=== PATIENT | female | born 1975 | race Caucasian/White ===

== ENCOUNTER 2022-03-20 10:47 | Outpatient (CLI) | payer BC ==
[2022-03-20 12:28] LABS: Hemoglobin 13.4 g/dL (12.0-15.5); Mean Corpuscular HGB CONC 34.2 g/dL (32.0-36.0); Mean Corpuscular Hemoglobin 32.1 pg (27.0-33.0); Mean Platelet Volume 9.8 fl (7.4-10.4); Platelet Count 339 10x3/uL (150-450); RBC Distribution Width 12.6 % (11.5-14.5); Red Blood Cell (RBC) Count 4.17 10x6/uL (3.90-5.03); White Blood Cell (WBC) Count 8.1 10x3/uL (3.5-10.5)
[2022-03-20 12:52] LABS: Anion Gap 15 mmol/L (10-20); BUN (Urea Nitrogen) 17 mg/dL (7.0-18.7); Calc. Creatinine Clearance 0 mL/min (70-130); Calcium 9.7 mg/dL (7.8-10.44); Carbon Dioxide 27 mmol/L (22-29); Chloride 102 mmol/L (98-107); Estimated GFR 99; Glucose 138 mg/dL (70-105); Potassium 3.8 mmol/L (3.5-5.1); Sodium 140 mmol/L (136-145)
== END 2022-03-20 10:48 | disposition home or self-care (01) ==
LOC: CSHLAB 10:47
PROVIDERS: ATTEND Podiatrist Foot & Ankle Surgery
DX: Z01.812 Encounter for preprocedural laboratory examination (principal); M20.5X1 Other deformities of toe(s) (acquired), right foot
CPT/HCPCS: 80048; 85027

== ENCOUNTER 2022-03-25 09:52 | Day surgery (SDC) | payer BC ==
[2022-03-23 14:17] VITALS: BMI 28.8
[2022-03-25] MEDS ORDERED: Bupivacaine PF 0.5% 30 ML VIAL ONE (11:09)
[2022-03-25] MEDS ORDERED: Neomycin-Polymyxin 1 ML AMP ONE (11:09)
[2022-03-25] MEDS ORDERED: Midazolam HCl 2 mg/2 ml Vial ONE (11:37)
[2022-03-25] MEDS ORDERED: Clindamycin/D5W 600 mg/50 ml Premix Bag ONE (12:03)
[2022-03-25] MEDS ORDERED: PROPOFOL 20 ML ONE (12:09)
[2022-03-25] MEDS ORDERED: Ondansetron PF 4 MG/2 ML Vial ONE (12:09)
[2022-03-25] MEDS ORDERED: Lidocaine 2% PF 5 ML VIAL ONE (12:09)
[2022-03-25] MEDS ORDERED: Dexamethasone 20 MG/5 ML VIAL ONE (12:09)
[2022-03-25] MEDS ORDERED: Fentanyl 100 MCG/2 ML VIAL ONE (12:09)
[2022-03-25] MEDS ORDERED: PHENYLEPHRINE-NS 100 MCG/ML 10 ML SYRINGE ONE ×2 (12:43→13:12)
== END 2022-03-25 14:45 | disposition home or self-care (01) ==
LOC: CSHSDC 09:52
PROVIDERS: ATTEND Podiatrist Foot & Ankle Surgery
PROC: 0SRM0JZ Replacement of Right Metatarsal-Phalangeal Joint with Synthetic Substitute, Open Approach (ICD-10-PCS; principal; 2022-03-25)
DX: M20.21 Hallux rigidus, right foot (principal); M19.071 Primary osteoarthritis, right ankle and foot; M79.671 Pain in right foot; F17.200 Nicotine dependence, unspecified, uncomplicated; I10 Essential (primary) hypertension; Z79.899 Other long term (current) drug therapy; Z88.0 Allergy status to penicillin; Z88.8 Allergy status to other drugs, medicaments and biological substances
CPT/HCPCS: C1713; C1776; J1100; J2001; J2250; J2405; J2704; J3010; J3490; S0020